=== PATIENT | male | born 1995 | race African-American/Black ===

== ENCOUNTER 2019-12-16 11:36 | Emergency (ER) | payer OTHER ==
[~2019-12-16] VITALS: Ht 175.3 cm; Wt 77.1 kg
[2019-12-16] MEDS ORDERED: KEFLEX500 M1 PO (13:28)
[2019-12-16] MEDS ORDERED: MOBIC15 MG PO (13:33)
[2019-12-16 13:45] VITALS: BP 139/86
== END 2019-12-16 13:46 | disposition home or self-care (01) ==
LOC: ER 11:36
DX: S61.421A Laceration with foreign body of right hand, initial encounter (principal); F17.210 Nicotine dependence, cigarettes, uncomplicated; W25.XXXA Contact with sharp glass, initial encounter; Y93.89 Activity, other specified; Y92.89 Other specified places as the place of occurrence of the external cause; Y99.8 Other external cause status